=== PATIENT | female | born 1985 | race Two or more races ===

== ENCOUNTER 2018-07-07 21:19 | Emergency (ER) | payer MEDICAID ==
[~2018-07-07] VITALS: Ht 160 cm; Wt 65.9 kg
[~2018-07-07 21:19] MED LIST: HYDR-4383 PO; NITR100C6 PO
[2018-07-07 21:46] VITALS: BP 160/111
--- NOTE | 2018-07-08 00:38 | NUR ---
Call placed to number on file after attempting to Rm 3 times. Left message expressing concern for Pt.'s wellbeing and encouraged her to return for Eval. Dr. Wisdom informed.
== END 2018-07-08 00:12 | disposition left against medical advice (07) ==
LOC: ER 21:20
DX: H57.89 Other specified disorders of eye and adnexa (principal); Z53.21 Procedure and treatment not carried out due to patient leaving prior to being seen by health care provider